=== PATIENT | male | born 1990 | race Caucasian/White ===

== ENCOUNTER 2020-12-07 11:14 | Outpatient (RCR) | payer OTHER, SELFPAY ==
[2020-12-07] MEDS: FAMOTIDINE 20 MG TABLET PO (11:38)
[2020-12-07] MEDS: ACETAMINOPHEN 325 MG TABLET 650 MG PO (11:38)
[2020-12-07] MEDS: diphenhydrAMINE HCl CAP 25 MG CAPSULE PO (11:38)
[2020-12-07 11:49] VITALS: BP 138/91; PULSE 84; RESP 18; TEMP 36.4; O2SAT 99
--- NOTE | 2020-12-07 11:57 | PC.NURSE ---
Patient had first Pf[employer] vaccine on 11/27/20.
[2020-12-07 13:20] VITALS: BP 135/90; PULSE 76; RESP 20; TEMP 36.4; O2SAT 100
--- NOTE | 2020-12-10 08:26 | PC.NURSE ---
Attempted to call patient to folllow-up on antibody infusion from 12/07/20. Left a voicemail for patient to call back.
== END 2020-12-07 16:30 | disposition home or self-care (01) ==
LOC: AMCINF 11:14
PROVIDERS: PCP Family Medicine; Visit Provider Internal Medicine Hematology & Oncology
DX: Z23 Encounter for immunization (principal); U07.1 COVID-19
CPT/HCPCS: A9270; J7050; M0243; Q0244